=== PATIENT | female | born 1945 | race Caucasian/White ===

== ENCOUNTER 2017-06-11 08:53 | Day surgery (SDC) | payer MEDICARE, MEDICAID ==
[2017-06-11 10:08] LABS: ADD MAN DIFF? NO
[2017-06-11 10:12] LABS: BASOPHILS % 0.7 % (0.0-2.0); EOSINOPHILS # 0.4 10^3/ul (0.0-0.5); EOSINOPHILS % 8.4 % (0.0-7.0); HEMATOCRIT 38.2 % (37.0-47.0); HEMOGLOBIN 12.5 g/dl (12.0-16.0); LYMPHOCYTES # 1.1 10^3/ul (0.8-2.9); LYMPHOCYTES % 26.5 % (15.0-51.0); MEAN CORPUSCULAR HEMOGLOBIN 27.8 pg (29.0-33.0); MEAN CORPUSCULAR HGB CONC 32.7 g/dl (32.0-37.0); MEAN CORPUSCULAR VOLUME 84.9 fl (82.0-101.0); MEAN PLATELET VOLUME 11.6 fl (7.4-10.4); MONOCYTE # 0.6 10^3/ul (0.3-0.9); MONOCYTES % 13.8 % (0.0-11.0); NEUTROPHIL # 2.1 10^3/ul (1.6-7.5); NEUTROPHILS % 50.4 % (39.0-77.0); PLATELET COUNT 156 10^3/UL (140-415); RED CELL DISTRIBUTION WIDTH 14.5 % (11.5-14.5)
[2017-06-11 10:12] LABS: WHITE BLOOD COUNT 4.2 10^3/ul (4.8-10.8)
[2017-06-11 10:27] LABS: ANION GAP 11 (8-16); CARBON DIOXIDE 27 mmol/L (21-31); CHLORIDE 107 mmol/L (97-110); GLUCOSE 105 mg/dl (70-220)
[2017-06-11 10:30] LABS: INR 0.99; PROTIME 13.2 Sec (11.9-14.9)
[2017-06-11 10:31] LABS: BLOOD UREA NITROGEN 8 mg/dl (7-20); CALCIUM 9.4 mg/dl (8.4-10.2); CREATININE 0.65 mg/dl (0.44-1.00); PARTIAL THROMBOPLASTIN TIME 41.7 Sec (25.0-35.0); SODIUM 141 mmol/L (135-144)
[2017-06-11] MEDS ORDERED: IODIXANOL LOCM 100 ML BTL (11:23)
[2017-06-11] MEDS ORDERED: LIDOCAINE 1% (MDV) 20 ML INJ (11:23)
[2017-06-11] MEDS ORDERED: MIDAZOLAM 1 MG/ML 2 ML INJ (11:24)
[2017-06-11] MEDS ORDERED: FENTAnyl 50 MCG/ML VIAL (11:24)
[2017-06-11 12:11] LABS: AADO2 Arterial 18.5 mmHg (7.0-24.0); Allen Test ACCEPTAB; Arterial Base Excess -1.3 mmol/L (-3.0-3); Arterial Blood Gas Oxygen Sat 95.9 mmHG (95.0-100.0); Arterial COHb 0.3 % (0.0-3.0); Arterial Fraction of Oxyhgb 95.3 % (93.0-99.0); Arterial HCO3 23.4 mmol/L (22.0-26.0); Arterial MetHb 0.3 % (0.0-1.5); Arterial Total Hemglobin 12.6 g/dl (12.0-18.0); Arterial pCO2 39.1 mmhg (35-45); MODE ROOM AIR; Site Right Radial
[2017-06-11 12:15] LABS: MODE ROOM AIR; MetHgb Mixed Venous 0.4 %; Mixed Venous COHb 0 %; Mixed Venous Fraction OxyHgb 75.3 %; Mixed Venous Oxygen Sat 75.6 mmHG (65.0-75.0); Mixed Venous Total Hemglobin 12.6 g/dl; Sample Type BLMV; Site PUL ART LINE
[2017-06-11] MEDS ORDERED: morphine 2 MG INJ IV (12:30)
[2017-06-11] MEDS ORDERED: ONDANSETRON 4 MG INJ IV (12:30)
[2017-06-11] MEDS ORDERED: ACETAMINOPHEN 325 MG TAB PO (12:30)
[2017-06-11] MEDS ORDERED: AL HYDROX/MG HYDROX/SIMETH 30 ML CUP PO (12:30)
== END 2017-06-11 18:07 | disposition home or self-care (01) ==
LOC: SDS 08:53
DX: I34.0 Nonrheumatic mitral (valve) insufficiency (principal); I05.0 Rheumatic mitral stenosis; I48.91 Unspecified atrial fibrillation; Z86.73 Personal history of transient ischemic attack (TIA), and cerebral infarction without residual deficits
CPT/HCPCS: 36592; 36600; 80048; 82803; 85025; 85610; 85730; 93460